=== PATIENT | male | born 1960 | race Caucasian/White ===

== ENCOUNTER 2022-09-22 22:09 | Observation (INO) | payer BC ==
[2022-09-22] MEDS ORDERED: NITROGLYCERIN 0.4 MG/TAB SL ONE (22:42)
[2022-09-22 22:46] LABS: Absolute Lymphocytes (CBC) 1.8 K/uL (0.7-4.9); Lymphocytes % 29.4 % (15.3-44.8); MCV 91.8 fL (80-100); MPV 7.8 fL (7.6-11.3); RBC Red Blood Cell Count 4.25 M/uL (4.33-5.43)
[2022-09-22 23:05] LABS: Potassium 3.8 mmol/L (3.5-5.1); Troponin High Sensitivity 5.8 pg/mL (<58.9)
[2022-09-22 23:08] LABS: Albumin 3.9 g/dL (3.4-5.0); Bilirubin Direct 0.1 mg/dL (0-0.2); Bilirubin Total 0.4 mg/dL (0.2-1.0); Protein, Total 6.5 g/dL (6.4-8.2)
--- NOTE | 2022-09-22 23:21 | EDPHYS ---
Physician Documentation [facility] Name: Bear Zuniga Age: 62 yrs Sex: Male : 1960 Arrival Date: 09/22/2022 Time: 22:10 Bed 6 Private MD: ED Physician Can Sosa HPI: 09/22 23:28 This 62 yrs old Male presents to ER via EMS with complaints of Chest Pain. rt 23:28 Patient presents to the ED with exertional chest pain today, and completely resolved rt with nitro. Patient has had reported 5 stents previously. He has an associated shortness of breath. Pain is pressure in nature, nonradiating, no other symptoms or other aggravating or alleviating factors. Symptoms are moderate severity.. Historical: - Allergies: 22:19 No Known Allergies; kd3 - PMHx: 22:19 Myocardial infarction; stents; kd3 - Immunization history:: Adult Immunizations up to date. - Social history:: Smoking status: Patient denies any tobacco usage or history of. - Family history:: not pertinent. ROS: 23:28 Constitutional: Negative for fever, chills, and weight loss, Abdomen/GI: Negative for rt abdominal pain, nausea, vomiting, diarrhea, and constipation, MS/Extremity: Negative for injury and deformity, Skin: Negative for injury, rash, and discoloration, Neuro: Negative for headache, weakness, numbness, tingling, and seizure. 23:28 Cardiovascular: Positive for chest pain, Negative for edema. 23:28 Respiratory: Positive for shortness of breath, Negative for cough. Exam: 23:28 Constitutional: This is a well developed, well nourished patient who is awake, alert, rt and in no acute distress. Head/Face: Normocephalic, atraumatic. Neck: Trachea midline, no thyromegaly or masses palpated, and no cervical lymphadenopathy. Supple, full range of motion without nuchal rigidity, or vertebral point tenderness. No Meningismus. Chest/axilla: Normal chest wall appearance and motion. Nontender with no deformity. No lesions are appreciated. Cardiovascular: Regular rate and rhythm with a normal S1 and S2. No gallops, murmurs, or rubs. Normal PMI, no JVD. No pulse deficits. Respiratory: Lungs have equal breath sounds bilaterally, clear to auscultation and percussion. No rales, rhonchi or wheezes noted. No increased work of breathing, no retractions or nasal flaring. Abdomen/GI: Soft, non-tender, with normal bowel sounds. No distension or tympany. No guarding or rebound. No evidence of tenderness throughout. MS/ Extremity: Pulses equal, no cyanosis. Neurovascular intact. Full, normal range of motion. Neuro: Awake and alert, GCS 15, oriented to person, place, time, and situation. Cranial nerves II-XII grossly intact. Motor strength 5/5 in all extremities. Sensory grossly intact. Cerebellar exam normal. Normal gait. Psych: Awake, alert, with orientation to person, place and time. Behavior, mood, and affect are within normal limits. 23:28 ECG was reviewed by the Attending Physician. Vital Signs: 22:12 BP 138 / 84; Pulse 72; Resp 19; Temp 98.5(O); Pulse Ox 100% on R/A; Weight 81.65 kg; kd3 Height 5 ft. 7 in. (170.18 cm); 22:56 BP 125 / 76; Pulse 84; Resp 19 S; Pulse Ox 99% on R/A; as6 09/23 00:36 BP 119 / 70; Pulse 78; Resp 15 S; Pulse Ox 98% on R/A; as6 09/22 22:12 Body Mass Index 28.19 (81.65 kg, 170.18 cm) kd3 MDM: 09/22 22:11 Patient medically screened. rt 23:31 Differential diagnosis: abnormal EKG, acute myocardial infarction, pneumonia, rt pneumothorax, pulmonary embolus, unstable angina. HEART Score: History: Highly Suspicious (2), ECG: Non specific repolarization disturbance / LBTB / PM (1), Age: > 45 and < 65 years (1), Risk Factors: > or = 3 Risk factors for atherosclerotic disease (2), Troponin: < or = 1 x Normal Limit (0), Total Score = 6. The patient was not given aspirin in the Emergency Department. Patient reports taking aspirin within the past 24 hours. Data reviewed: vital signs, nurses notes, lab test result(s), EKG, radiologic studies. I considered the following discharge prescriptions or medication management in the emergency department Medications were administered in the Emergency Department. See MAR. Test considered but Not performed: CT: Low suspicion for PE, CT scan not indicated.. Care significantly affected by the following chronic conditions: Coronary artery disease. Counseling: I had a detailed discussion with the patient and/or guardian regarding: the historical points, exam findings, and any diagnostic results supporting the discharge/admit diagnosis, lab results, radiology results, the need for further work-up and treatment in the hospital. 09/22 22:26 Order name: Basic Metabolic Panel [facility] 09/22 22:26 Order name: CBC with Diff [facility] 09/22 22:26 Order name: Troponin HS [facility] 09/22 22:26 Order name: XRAY Chest (1 view) 3 09/22 22:26 Order name: EKG; Complete Time: 22:27 3 09/22 22:26 Order name: Cardiac monitoring; Complete Time: 22:26 3 09/22 22:26 Order name: EKG - Nurse/Tech; Complete Time: 22:26 3 09/22 22:26 Order name: IV Saline Lock; Complete Time: 22:26 3 09/22 22:26 Order name: Labs collected and sent; Complete Time: 22:26 3 09/22 22:26 Order name: O2 Per Protocol; Complete Time: 22:26 kd3 09/22 22:26 Order name: O2 Sat Monitoring; Complete Time: 22:26 3 09/22 22:30 Order name: LFT's la1 09/22 22:30 Order name: BNP tn1 09/22 22:48 Order name: CBC with Automated Diff; Complete Time: 23:10 EDMS 09/22 23:05 Order name: Basic Metabolic Panel; Complete Time: 23:10 EDMS 09/22 23:05 Order name: Troponin High Sensitivity; Complete Time: 23:10 EDMS 09/22 23:08 Order name: Liver (Hepatic) Function; Complete Time: 23:10 EDMS 09/22 23:08 Order name: NT PRO-BNP; Complete Time: 23:10 EDMS 09/22 23:19 Order name: SARS RAPID la1 09/23 00:19 Order name: SARS-COV-2 Antigen Rapid EDMS EC:28 Rate is 69 beats/min. Rhythm is regular, Normal Sinus Rhythm with No ectopy. QRS [place] rt is Normal. SC interval is normal. QRS interval is normal. QT interval is normal. No Q waves. Clinical impression: NSR w/ Non-specific ST/T Changes. Administered Medications: 22:38 Drug: Nitroglycerin 0.4 mg Route: Sublingual; kd3 22:57 Drug: Nitroglycerin 0.4 mg Route: Sublingual; kd3 09/23 00:49 Follow up: Response: No adverse reaction; Pain is decreased kd3 Disposition Summary: 09/22/22 23:20 Hospitalization Ordered Hospitalization Status: Observation rt Provider: Davey Soliman rt Location: Telemetry/MedSurg (observation) rt Condition: Stable rt Problem: new rt Symptoms: are resolved rt Bed/Room Type: Standard rt Room Assignment: 401(09/23/22 00:34) cg Diagnosis - Chest pain, unspecified rt Forms: - Medication Reconciliation Form rt - SBAR form rt Signatures: Dispatcher [employer] EDJuan José Perry, RESEARCH ELECTRICIAN-C RESEARCH ELECTRICIAN-Cla1 Diana Mata RN RN cg Laura Edwards RN RN kd3 Can Sosa MD MD rt Corrections: (The following items were deleted from the chart) 00:34 09/22 23:20 rt cg
--- NOTE | 2022-09-22 23:21 | ER ---
Nurse's Notes [facility] [place] Name: Bear Zuniga Age: 62 yrs Sex: Male : 1960 Arrival Date: 09/22/2022 Time: 22:10 Bed 6 Private MD: Diagnosis: Chest pain, unspecified Presentation: 09/22 22:12 Chief complaint: EMS states: Pt had some chest tightness that started about an hour kd3 ago. Pt took his bp at home and it was 140/90 with a heart rate of 100. Pt has a significant heart history that includes stent placement in 2014. pt took nitro about 30 minutes ago. Coronavirus screen: Vaccine status: Patient reports receiving the 2nd dose of the covid vaccine. Ebola Screen: No symptoms or risks identified at this time. Initial Sepsis Screen: Does the patient meet any 2 criteria? No. Patient's initial sepsis screen is negative. Initial Sepsis Screen: Does the patient have a suspected source of infection? No. Patient's initial sepsis screen is negative. Risk Assessment: Do you want to hurt yourself or someone else? Patient reports no desire to harm self or others. Onset of symptoms was September 22, 2022. 22:12 Method Of Arrival: EMS: [facility] kd3 22:12 Acuity: BENJI 3 kd3 Triage Assessment: 22:19 General: Appears in no apparent distress. Behavior is calm, cooperative. Pain: kd3 Complains of pain in chest. Neuro: Level of Consciousness is awake, alert, obeys commands, Oriented to person, place, time, situation. Cardiovascular: Patient's skin is warm and dry. Respiratory: Airway is patent Trachea deviated to right Respiratory effort is even, unlabored, Respiratory pattern is regular, symmetrical. Historical: - Allergies: 22:19 No Known Allergies; kd3 - PMHx: 22:19 Myocardial infarction; stents; kd3 - Immunization history:: Adult Immunizations up to date. - Social history:: Smoking status: Patient denies any tobacco usage or history of. - Family history:: not pertinent. Screenin/03 00:37 [facility] ED Fall Risk Assessment (Adult) Score/Fall Risk Level 0 - 2 = Low Risk. Abuse as6 screen: Denies threats or abuse. Denies injuries from another. Nutritional screening: No deficits noted. Tuberculosis screening: No symptoms or risk factors identified. Assessment: 00:22 General: Leisa [phone]. kd3 00:38 General: attempted to call report . as6 Vital Signs: 09/22 22:12 BP 138 / 84; Pulse 72; Resp 19; Temp 98.5(O); Pulse Ox 100% on R/A; Weight 81.65 kg; kd3 Height 5 ft. 7 in. (170.18 cm); 22:56 BP 125 / 76; Pulse 84; Resp 19 S; Pulse Ox 99% on R/A; as6 09/23 00:36 BP 119 / 70; Pulse 78; Resp 15 S; Pulse Ox 98% on R/A; as6 09/22 22:12 Body Mass Index 28.19 (81.65 kg, 170.18 cm) kd3 ED Course: 09/22 22:10 Patient arrived in ED. la1 22:11 Can Sosa MD is Attending Physician. rt 22:12 Laura Edwards RN is Primary Nurse. kd3 22:19 Triage completed. kd3 22:19 Arm band placed on right wrist. EKG completed in triage. Results shown to MD. kd3 23:20 Davey Soliman MD is Hospitalizing Provider. rt 09/23 00:37 Bed in low position. Call light in reach. Side rails up X2. as6 00:37 No provider procedures requiring assistance completed. Patient admitted, IV remains in as6 place. Administered Medications: 09/22 22:38 Drug: Nitroglycerin 0.4 mg Route: Sublingual; kd3 22:57 Drug: Nitroglycerin 0.4 mg Route: Sublingual; kd3 09/23 00:49 Follow up: Response: No adverse reaction; Pain is decreased kd3 Medication: 00:37 VIS not applicable for this client. as6 Outcome: 09/22 23:20 Decision to Hospitalize by Provider. rt 03 00:37 Condition: stable as6 Instructed on the need for admit. 00:49 Admitted to Med/surg kd3 00:51 Patient left the ED. kd3 Signatures: Juan José Hancock, SCIENCE INSTRUCTOR-C SCIENCE INSTRUCTOR-Cla1 Girma Neumann RN RN as6 Laura Edwards RN RN kd3 Can Sosa MD MD rt
--- NOTE | 2022-09-23 00:14 | P.HP ---
Certification for Inpatient Patient admitted to: Observation With expected LOS: <2 Midnights Patient will require the following post-hospital care: None Practitioner: I am a practitioner with admitting privileges, knowledge of patient current condition, hospital course, and medical plan of care. Services: Services provided to patient in accordance with Admission requirements found in Title 42 Section 412.3 of the Code of Federal Regulations <Juan José Hancock Edilson Figueroa - Last Filed: 09/23/22 00:11> Patient History Date of Service: 09/23/22 Reason for admission: Chest pain History of Present Illness: 62-year-old male with history of hypertension, CAD, anxiety, GERD presents to the emergency department with chief complaint of chest pain. He reports that he was working on installing a stereo system in his home when he began to have chest tightness similar to his previous MN in 2014 but less severe. He was brought to the hospital by EMS his EKG was negative for STEMI criteria, initial troponin 5.8. His pain was relieved with 2 nitroglycerin which were given in the emergency department. His last heart catheterization was in 2014, last stress test approximately 2 to 3 years ago. ED provider wishes to admit under observation for ACS rule out. - Past Medical/Surgical History -: CAD -: Hypertension -: Anxiety -: GERD -: Hernia repair Psychosocial/ Personal History: Patient lives at home with his , is retired. - Family History Father -: Heart disease Brother -: Heart disease - Social History Smoking Status: Never smoker Alcohol use: No CD- Drugs: No Caffeine use: Yes Place of Residence: Home <KarissaJuan José - Last Filed: 09/23/22 00:11> Date of Service: 09/23/22 <Davey Soliman - Last Filed: 09/23/22 12:27> Allergies No Known Allergies Allergy (Unverified 02/09/12 09:17) Review of Systems 10-point ROS is otherwise unremarkable Cardiovascular: Chest Pain <DavidJuan José arnold - Last Filed: 09/23/22 00:11> Physical Examination - Physical Exam General: Alert, In no apparent distress, Oriented x3 HEENT: Atraumatic, PERRLA, Mucous membr. moist/pink, EOMI, Sclerae nonicteric Neck: Supple, 2+ carotid pulse no bruit, No LAD, Without JVD or thyroid abnormality Respiratory: Clear to auscultation bilaterally, Normal air movement Cardiovascular: Regular rate/rhythm, Normal S1 S2 Gastrointestinal: Normal bowel sounds, No tenderness Musculoskeletal: No tenderness Integumentary: No rashes Neurological: Normal speech, Normal strength at 5/5 x4 extr, Normal tone, Normal affect - Studies Laboratory Data (last 24 hrs) 09/22/22 22:33: Total Bilirubin 0.4, AST 17, ALT 30, Alkaline Phosphatase 57 09/22/22 22:33: WBC 6.10, Hgb 13.2 L, Hct 39.0 L, Plt Count 249 09/22/22 22:33: Sodium 137, Potassium 3.8, BUN 14, Creatinine 0.93, Glucose 161 H <Juan José Hancock - Last Filed: 09/23/22 00:11> - Studies Laboratory Data (last 24 hrs) 09/22/22 22:33: Total Bilirubin 0.4, AST 17, ALT 30, Alkaline Phosphatase 57 09/22/22 22:33: WBC 6.10, Hgb 13.2 L, Hct 39.0 L, Plt Count 249 09/22/22 22:33: Sodium 137, Potassium 3.8, BUN 14, Creatinine 0.93, Glucose 161 H <Davey Soliman - Last Filed: 09/23/22 12:27> Assessment and Plan - Plan Assessment: Chest pain rule out ACShistory CAD Hypertension GERD Anxiety Plan: Chest pain rule out ACShistory CAD Trend troponins, monitor on telemetry, cardiology consulted. N.p.o. in case of plan for intervention by cardiology. Continue aspirin, beta-nickolas added statin. Lipid panel ordered. Pain-free at this time, as needed nitroglycerin/morphine. Hypertension Continue lisinopril, metoprolol GERD Continue PPI Anxiety Continue as needed alprazolam. DVT PPX: Lovenox Code status: Full Discharge Plan: Home Plan to discharge in: 24 Hours - Advance Directives Does patient have a Living Will: No Does patient have a Durable POA for Healthcare: No - Code Status/Comfort Care Code Status Assessed: Yes (Full code) Critical Care: No Time Spent Managing Pts Care (In Minutes): 50 <Juan José Hancock - Last Filed: 09/23/22 00:11> Physician Review: Patient Assessed, Agree with Above Assessment and Plan <Davey Soliman - Last Filed: 09/23/22 12:27>
[2022-09-23 00:19] LABS: SARS-CoV-2 Antigen Rapid Res Negative (Negative)
[2022-09-23] MEDS ORDERED: ALPRAZOLAM 0.5 MG TABLET PO PRN (01:03)
[2022-09-23] MEDS ORDERED: NITROGLYCERIN 0.4 MG/TAB SL PRN (01:03)
[2022-09-23] MEDS ORDERED: ONDANSETRON 4 MG/2 ML VIAL IV PRN (01:03)
[2022-09-23] MEDS ORDERED: MORPHINE 2 MG/ML SYR IV PRN (01:03)
[2022-09-23 01:29] VITALS: O2SAT 98; BMI 28.1
[2022-09-23] MEDS ORDERED: ACETAMINOPHEN 325 MG TABLET PO PRN (01:58)
[2022-09-23 04:03] LABS: Lymphocytes % 31.1 % (15.3-44.8); MCV 91.3 fL (80-100); MPV 8.2 fL (7.6-11.3); RBC Red Blood Cell Count 4.16 M/uL (4.33-5.43)
[2022-09-23 04:33] LABS: Troponin High Sensitivity 6.9 pg/mL (<58.9)
[2022-09-23] MEDS ORDERED: lisinopriL 5 MG TAB PO SCH (09:00)
[2022-09-23] MEDS ORDERED: ASPIRIN EC 81 MG TAB PO SCH (09:00)
[2022-09-23] MEDS ORDERED: ENOXAPARIN 40 MG/0.4 ML SQ SCH (09:00)
--- NOTE | 2022-09-23 12:33 | P.DS ---
Admission Date: 09/23/22 Discharge Date: 09/23/22 Disposition: ROUTINE DISCHARGE Discharge Condition: GOOD Reason for Admission: Chest pain Consultations: 1. Cardiology Hospital Course: DIAGNOSES: # Post-Prandial Chest Pain, suspect Gastrointestinal # Coronary Artery Disease s/p PCI # Hypertension # Anxiety # Gastroesophageal Reflux Disease HOSPITAL COURSE: Mr. Bear Zuniga is a pleasant 62 year old male with a past medical history significant for coronary artery disease s/p PCI, hypertension, anxiety, and gastroesophageal reflux disease who was admitted to the [facility] on 09/23/2022 for chest pain. He was admitted to the Medicine service. Upon further evaluation, his EKG was without STEMI criteria. His D-dimer returned at 330. His troponin trend was 5.8 -> 6.9 -> 6.9. His chest x-ray revealed, "no acute cardiopulmonary abnormality identified by radiograph. Cardiology was consulted and he was evaluated by Dr. Ramirez. He has cleared him for discharge with outpatient transthoracic echocardiogram and cardiac stress test. On 09/23/2022, he was seen on rounds and deemed medically stable for discharge. He was discharged with instructions to schedule follow-up appointments with his PCP and with Cardiology (Dr. Ramirez). He was given the opportunity to ask questions and reported no further questions. Furthermore, all questions were answered to the best of my ability. A copy of this discharge summary will be sent to the above providers to facilitate continuity of care. Today, I personally spent 25 minutes on his case, of which greater than 50% of the time was spent in patient education, counseling, and coordination of care as described above. Vital Signs/Physical Exam: Temp Pulse Resp BP Pulse Ox 97 F 69 16 128/71 98 09/23/22 08:00 09/23/22 10:57 09/23/22 08:00 09/23/22 10:57 09/23/22 08:00 General: Alert, In no apparent distress, Oriented x3 HEENT: Atraumatic, EOMI, Sclerae nonicteric Neck: JVD not distended Respiratory: Clear to auscultation bilaterally, Normal air movement Cardiovascular: No edema, Regular rate/rhythm, Normal S1 S2, No gallops, No rubs, No murmurs Gastrointestinal: Normal bowel sounds, Soft and benign, Non-distended, No tenderness, No rebound, No guarding Musculoskeletal: No clubbing Integumentary: No rashes Neurological: Normal speech, Normal affect Laboratory Data at Discharge: WBC 6.50 K/uL (4.3-10.9) 09/23/22 03:11 Hgb 13.0 g/dL (13.6-17.9) L 09/23/22 03:11 Hct 38.0 % (39.6-49.0) L 09/23/22 03:11 Plt Count 249 K/uL (152-406) 09/23/22 03:11 Sodium 138 mmol/L (136-145) 09/23/22 03:11 Potassium 4.0 mmol/L (3.5-5.1) 09/23/22 03:11 BUN 15 mg/dL (7-18) 09/23/22 03:11 Creatinine 0.66 mg/dL (0.70-1.30) L 09/23/22 03:11 Glucose 105 mg/dL (74-106) 09/23/22 03:11 Total Bilirubin 0.4 mg/dL (0.2-1.0) 09/22/22 22:33 AST 17 U/L (15-37) 09/22/22 22:33 ALT 30 U/L (16-61) 09/22/22 22:33 Alkaline Phosphatase 57 U/L (45-117) 09/22/22 22:33 Triglycerides 52 mg/dL (<150) 09/23/22 03:11 Cholesterol 129 mg/dL (<200) 09/23/22 03:11 HDL Cholesterol 53 mg/dL (40-60) 09/23/22 03:11 Cholesterol/HDL Ratio 2.43 09/23/22 03:11 Home Medications: RX: Alprazolam [Xanax] 0.5 mg PO BID PRN 09/23/22 RX: Aspirin [Adult Aspirin Regimen] 81 mg PO DAILY 09/23/22 RX: Atorvastatin Calcium [Lipitor] 40 mg PO BEDTIME 09/23/22 RX: Lisinopril [Zestril] 5 mg PO DAILY 09/23/22 RX: Metoprolol Succinate [Toprol Xl*] 25 mg PO DAILY 09/23/22 RX: Omeprazole [Prilosec] 40 mg PO BID 09/23/22 Physician Discharge Instructions: 1. Please call and schedule a follow-up appointment with your PCP in 3-5 days 2. Please call and schedule a follow-up appointment with Cardiology (Dr. Ramirez) in 3-5 days - He will schedule you for a cardiac stress test in his clinic Diet: AHA Activity: Ad jose Followup: NONE,NONE [Primary Care Provider] - Kane Ramirez MD [ACTIVE - CAN ADMIT] - Time spent managing pt's care (in minutes): 25
[2022-09-23 13:31] VITALS: BP 152/71; TEMP 97.6
--- NOTE | 2022-09-23 14:29 | EKG ---
Test Date: 2022-09-22 Test Time: 22:21:25 Network Security Engineer: LAYLA MEASUREMENT RESULTS: Intervals: Rate: 69 NC: 158 QRSD: 100 QT: 374 QTc: 400 [place]: P: 54 NC: 158 QRS: 6 T: -2 INTERPRETIVE STATEMENTS: Normal sinus rhythm Inferior infarct, age undetermined Abnormal ECG No previous ECG available for comparison Electronically Signed On 09-23-22 14:28:11 INSPECTOR EXHAUST EMISSIONS by Kane Ramirez
--- NOTE | 2022-09-23 18:14 | CON ---
Date of Consultation: 09/23/2022 Reason For Consultation: Chest pain. History Of Present Illness: This is a 62-year-old male with history of hypertension, coronary artery disease, anxiety disorder, and acid reflux who presented to the emergency room with chest pain. He was working installing a sound system at his house and started having chest tightness. No radiation. Pain resolved shortly after that and denies having any shortness of breath, diaphoresis, nausea, or vomiting. No further chest pain since hospitalization. Past Medical History: As outlined above in the HPI. Medications: Refer to reconciliation sheet for detailed list. Allergies: NO KNOWN DRUG ALLERGIES. Family History: No premature coronary artery disease or cancer. Social History: He does not smoke or drink. Does not use any drugs. Review of Systems: All systems reviewed and they were negative except as mentioned in HPI. Physical Examination: Vital Signs: Reviewed. Head And Neck: Pupils are equal and reactive to light. Intact eye movements. No JVD. No cervical lymphadenopathy. Neck is supple. Thyroid is not enlarged. Lungs: Clear to auscultation bilaterally. No rhonchi, wheezing, or crackles. No accessory muscle u se. Heart: Regular rate and rhythm. No extra sounds. Abdomen: Soft, nontender. Bowel sounds positive. No organomegaly. No masses or hernia. No rigidi ty or rebound. Extremities: No edema, clubbing, or cyanosis. Intact pulses. Skin: No rash. Neurologic: Alert, awake, and oriented x3. No acute focal deficits appreciated. Investigations: BUN 15, creatinine 0.66, and troponin x3 are negative. LDL cholesterol 66, and hemo globin 13.0. Assessment/recommendation: 1.Chest pain. It was one episode and resolved and the patient did not have any further episodes and cardiac enzymes are totally normal. EKG without acute specific abnormalities. The patient can be r eleased from Cardiology standpoint as he is chest pain free. Follow up at the office early next week . We will obtain exercise nuclear stress test and an echo to further evaluate given the fact that he has history of coronary artery disease. 2.Dyslipidemia. Continue statin, at goal. 3.Hypertension. Blood pressure is controlled. SR/MODL Voice ID: [id number] Report ID: [id number]
--- NOTE | 2022-09-23 20:44 | RAD REPORT ---
EXAM DESCRIPTION: RAD - Chest Single View - 09/22/2022 10:51 pm CLINICAL HISTORY: CHEST PAIN. COMPARISON: None. TECHNIQUE: Single view AP chest radiograph(s). FINDINGS: No pulmonary infiltrate identified. No pleural effusion. No pneumothorax. Nonenlarged card iomediastinal silhouette. No significant osseous abnormality. IMPRESSION: No acute cardiopulmonary abnormality identified by radiograph. Electronically signed by: Brittany Santamaria MD 09/22/2022 10:58 PM BLANCHARD GRINDER OPERATOR Due to temporary technical issues with the PACS/Fluency reporting system, reports are being signed by the in house radiologists without review as a courtesy to insure prompt reporting. The interpreting radiologist is fully responsible for the content of the report
[2022-09-23] MEDS ORDERED: ATORVASTATIN 40 MG TAB PO SCH (21:00)
[2022-09-23] MEDS ORDERED: METOPROLOL XL 25 MG TAB PO SCH (21:00)
--- NOTE | 2022-09-26 07:13 | ECHO ---
HEIGHT: 5 ft 7 in WEIGHT: 180 lb 0 oz DATE OF STUDY: 09/23/[address]: Davey Soliman MD 2-DIMENSIONAL: YES M.MODE: YES DOPPLER: YES COLOR FLOW: YES TDS: PORTABLE: YES DEFINITY: BUBBLE STUDY: DIAGNOSIS: CHEST PAIN CARDIAC HISTORY: CATHERIZATION: SURGERY: PROSTHETIC VALVE: PACEMAKER: MEASUREMENTS (cm) DIASTOLIC (NORMALS) SYSTOLIC (NORMALS) IVSd 1.0 (0.6-1.2) LA Diam 3.7 (1.9-4.0) LVEF 69% LVIDd 4.6 (3.5-5.7) LVIDs 2.8 (2.0-3.5) %FS 39% LVPWd 1.0 (0.6-1.2) Ao Diam 3.1 (2.0-3.7) 2 DIMENSIONAL ASSESSMENT: RIGHT ATRIUM: NORMAL LEFT ATRIUM: NORMAL RIGHT VENTRICLE: NORMAL LEFT VENTRICLE: NORMAL TRICUSPID VALVE: NORMAL MITRAL VALVE: NORMAL PULMONIC VALVE: MILD PULMONARY INSUFFICIENCY AORTIC VALVE: NORMAL PERICARDIAL EFFUSION: NONE AORTIC ROOT: NORMAL LEFT VENTRICULAR WALL MOTION: NORMAL DOPPLER/COLOR FLOW: MILD PULMONIC INSUFFICIENCY COMMENTS: 1. NORMAL LEFT VENTRICULAR EJECTION FRACTION 60-65% 2. NORMAL WALL MOTION 3. NORMAL DIASTOLIC FUNCTION 4. MILD PULMONIC INSUFFICIENCY TECHNOLOGIST: ROSY MACK
== END 2022-09-23 14:25 | disposition home or self-care (01) ==
LOC: ER 22:09 → ERHOLD 09-23 → 4TH 09-23 00:38
PROVIDERS: ADMIT Internal Medicine; ATTEND Internal Medicine
DX: R07.89 Other chest pain (principal); I10 Essential (primary) hypertension; I25.10 Atherosclerotic heart disease of native coronary artery without angina pectoris; F41.9 Anxiety disorder, unspecified; K21.9 Gastro-esophageal reflux disease without esophagitis; Z82.49 Family history of ischemic heart disease and other diseases of the circulatory system; E78.5 Hyperlipidemia, unspecified; Z20.822 Contact with and (suspected) exposure to COVID-19
CPT/HCPCS: 93005; 93306; 85025 ×2; 80048 ×2; 36415; 80061; 85379; 80076; 84484 ×3; 83880; 71045; 99285; 87811; J1650; G0378

== ENCOUNTER 2024-05-31 07:09 | Emergency (ER) | payer BC ==
--- NOTE | 2024-05-31 07:49 | RAD REPORT ---
EXAMINATION: ONE VIEW CHEST XR CLINICAL INDICATION: CHEST PAIN TECHNIQUE: Frontal chest projection is submitted. Examination is limited by patient positioning and t echnique. COMPARISON: 09/22/2022 FINDINGS: The lungs are well inflated and clear. The heart is upper limit of normal in size. No displaced fract ures identified. Right upper lung field device. IMPRESSION: No acute intrathoracic abnormalities.
[2024-05-31 07:52] LABS: Absolute Basophils 0.1 K/uL (0-0.5); Absolute Eosinophils 0.1 K/uL (0-0.5); Absolute Lymphocytes (CBC) 2.2 K/uL (0.7-4.9); Absolute Monocytes 0.7 K/uL (0.1-1.3); Absolute Neutrophil 5.3 K/uL (1.8-8.0); Basophils % 0.8 % (0-1.3); Eosinophils % 0.6 % (0-4.4); Hematocrit 38.6 % (39.6-49.0); Hemoglobin 13.2 g/dL (13.6-17.9); Lymphocytes % 26.3 % (15.3-44.8); MCH 31.1 pg (27.0-35.0); MCHC 34.2 g/dL (32.0-36.0); MCV 90.9 fL (80-100); MPV 7.8 fL (7.6-11.3); Monocytes % 8.6 % (3.3-12.3); Neutrophils % 63.7 % (41.7-73.7); Nucleated Red Blood Cells % 0.1 % (0-0); Platelets 230 thou/uL (152-406); RBC Red Blood Cell Count 4.24 M/uL (4.33-5.43); Red Cell Distribution Width 13.7 % (12.1-15.2)
[2024-05-31 08:12] LABS: Albumin 3.4 g/dL (3.4-5.0); Albumin/Globulin Ratio 1.2 (1.1-1.8); Anion Gap 7.8 mEq/L (5.0-15.0); Bilirubin Direct 0.2 mg/dL (0-0.2); Bilirubin Indirect, Calculated 0.4 mg/dL (0.2-0.8); Bilirubin Total 0.6 mg/dL (0.2-1.0); Globulin 2.8 g/dL (2.3-3.5); Potassium 3.8 mEq/L (3.5-5.1); Protein, Total 6.2 g/dL (6.4-8.2); Troponin High Sensitivity 10.8 pg/mL (<58.9)
[2024-05-31 08:15] LABS: PT Prothrombin Time 11.8 SECONDS (9.4-12.5); Protime INR 1.06
--- NOTE | 2024-05-31 11:48 | ER ---
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 Pt states "my heart rate was high about 156, 167 and my blood pressure was high 180 (systolic)". Pt reports he took 1 dose of Nitro spray and ASA 325mg x 2 tabs just MD PHYSICIAN DERMATOLOGIST. 07:10 Coronavirus screen: shortness of breath. Ebola Screen: Patient denies travel to an [facility] area in the 21 days before illness onset. Initial Sepsis Screen: Does the patient meet any 2 criteria? No. Patient's initial sepsis screen is negative. Does the patient have a suspected source of infection? No. Patient's initial sepsis screen is negative. Risk Assessment: Do you want to hurt yourself or someone else? Patient reports no desire to harm self or others. Onset of symptoms was May 31, 2024. 07:10 Acuity: BENJI 2 aa5 07:10 Method Of Arrival: Ambulatory aa5 Historical: - Allergies: 07:10 No Known Allergies; aa5 - PMHx: 07:10 Myocardial infarction; Hypercholesterolemia; Hypertensive disorder; Heart stents; Sleep aa5 apnea; - PSHx: 07:10 Heart Stents; SX for sleep apnea; aa5 - Immunization history:: Adult Immunizations unknown. - Infectious Disease History:: Denies. - Social history:: Smoking status: Patient denies any tobacco usage or history of. Screenin:54 [facility] ED Fall Risk Assessment (Adult) History of falling in the last 3 months, db including since admission No falls in past 3 months (0 pts) Confusion or Disorientation No (0 pts) Intoxicated or Sedated No (0 pts) Impaired Gait No (0 pts) Mobility Assist Device Used No (0 pt) Altered Elimination No (0 pt) Score/Fall Risk Level 0 - 2 = Low Risk Oriented to surroundings, Maintained a safe environment. Abuse screen: Denies threats or abuse. Denies injuries from another. Nutritional screening: No deficits noted. Tuberculosis screening: No symptoms or risk factors identified. Assessment: 07:55 Reassessment: Patient appears in no apparent distress at this time. Patient and/or db family updated on plan of care and expected duration. Pain level reassessed. Patient is alert, oriented x 3, equal unlabored respirations, skin warm/dry/pink. General: Appears in no apparent distress. comfortable, Behavior is calm, cooperative. Pain: Pain radiates to chest and neck Pain began. Cardiovascular: Reports chest pain. 07:55 Neuro: Level of Consciousness is awake, alert, obeys commands, Oriented to person, db place, time, situation. Cardiovascular: Reports. Respiratory: Airway is patent Respiratory effort is even, unlabored, Respiratory pattern is regular, symmetrical. 10:00 Reassessment: Patient appears in no apparent distress at this time. Patient and/or db family updated on plan of care and expected duration. Pain level reassessed. Patient is alert, oriented x 3, equal unlabored respirations, skin warm/dry/pink. 12:02 Reassessment: Patient appears in no apparent distress at this time. Patient and/or db family updated on plan of care and expected duration. Pain level reassessed. Patient is alert, oriented x 3, equal unlabored respirations, skin warm/dry/pink. Patient states feeling better. Patient states symptoms have improved. Vital Signs: 07:10 BP 159 / 87; Pulse 84; Resp 19 S; Temp 97.5(TE); Pulse Ox 98% on R/A; Weight 82.55 kg aa5 (R); Height 5 ft. 7 in. (R); 07:45 BP 137 / 80; Pulse 80; Resp 18; Pulse Ox 98% on 2 lpm NC; db 08:30 BP 126 / 84; Pulse 72; Resp 16; Pulse Ox 99% on NC; db 09:00 BP 115 / 79; Pulse 76; Resp 16; Pulse Ox 100% on 2 lpm NC; db 10:00 BP 142 / 78; Pulse 75; Resp 16; Pulse Ox 98% on NC; db 11:00 BP 147 / 79; Pulse 78; Resp 18; Pulse Ox 97% on R/A; db 07:10 Body Mass Index 28.50 (82.55 kg, 170.18 cm) aa5 07:45 PT REQUEST NC O2 FOR COMFORT. NOTED ROOM AIR IS AT 98%. db ED Course: 07:10 Patient arrived in ED. ra3 07:10 Arm band placed on. aa5 07:10 Patient has correct armband on for positive identification. Placed in gown. Bed in low aa5 position. Call light in reach. Side rails up X2. Adult w/ patient. Client placed on continuous cardiac and pulse oximetry monitoring. NIBP monitoring applied. vehicle monitor technician on. Pulse ox on. NIBP on. 07:12 Ney Osuna DO is Attending Physician. ms3 07:19 EKG done, by ED staff, reviewed by Ney Osuna DO. aa5 07:27 Triage completed. aa5 07:39 Inserted saline lock: 20 gauge in left antecubital area, using aseptic technique. aa5 07:43 Stephanie Munoz, RN is Primary Nurse. db 11:10 Repeat lab(s) drawn. by md, sent to lab. db 11:48 Kane Ramirez MD is Referral Physician. ms3 12:02 Provided Education on: DISCHARGE. db 12:02 No provider procedures requiring assistance completed. IV discontinued, intact, db bleeding controlled, No redness/swelling at site. Patient maintains SpO2 saturation greater than 95% on room air. Administered Medications: No medications were administered Medication: 08:54 VIS not applicable for this client. db Outcome: 11:48 Discharge ordered by . ms3 12:02 Discharged to home ambulatory, with family, db 12:02 Condition: stable 12:02 Discharge instructions given to patient, family, Instructed on discharge instructions, follow up and referral plans. 12:03 Patient left the ED. db Signatures: Chhaya Montgomery, RN RN aa5 Ney Osuna DO DO ms3 Stephanie Munoz, RN RN db Gogo Miller ra3 Corrections: (The following items were deleted from the chart) 11:14 08:30 BP 126 / 84; Pulse 72bpm; Resp 16bpm; Pulse Ox 99% RA; db db
--- NOTE | 2024-05-31 11:48 | EDPHYS ---
Physician Documentation [facility] Name: Bear Zuniga Age: 64 yrs Sex: Male : 1960 Arrival Date: 05/31/2024 Time: 07:09 Bed 15 Private MD: ED Physician Ney Osuna HPI: 05/31 07:25 This 64 yrs old Male presents to ER via Unassigned with complaints of Chest Pain. ms3 07:25 64 year old male presents to the Emergency Department for an elevated heart rate and ms3 elevated blood pressure approximately 35 minutes prior to the encounter. The patient describes chest pain as located in the left chest and rated it as a 7 out of 10 in severity. The patient also experienced shortness of breath but did not report any nausea, vomiting, or sweating. The patient mentioned having a history of heart issues and a previous heart attack in 2014. The patient had been under stress recently and took two aspirin and nitroglycerin as precautionary measures. . Historical: - Allergies: 07:10 No Known Allergies; aa5 - PMHx: 07:10 Myocardial infarction; Hypercholesterolemia; Hypertensive disorder; Heart stents; Sleep aa5 apnea; - PSHx: 07:10 Heart Stents; SX for sleep apnea; aa5 - Immunization history:: Adult Immunizations unknown. - Infectious Disease History:: Denies. - Social history:: Smoking status: Patient denies any tobacco usage or history of. ROS: 07:25 Constitutional: Negative for fever, and chills. ms3 07:25 Respiratory: Negative for shortness of breath, cough, wheezing, and pleuritic chest pain, Abdomen/GI: Negative for abdominal pain, nausea, vomiting, diarrhea, and constipation, MS/Extremity: Negative for injury and deformity, Skin: Negative for injury, rash, and discoloration, 07:25 Cardiovascular: Positive for chest pain, Exam: 07:25 Constitutional: This is a well developed, well nourished patient who is awake, alert, ms3 and in no acute distress. Cardiovascular: Regular rate and rhythm with a normal S1 and S2. No gallops, murmurs, or rubs. Normal PMI, no JVD. No pulse deficits. Respiratory: Lungs have equal breath sounds bilaterally, clear to auscultation and percussion. No rales, rhonchi or wheezes noted. No increased work of breathing, no retractions or nasal flaring. Abdomen/GI: Soft, non-tender, with normal bowel sounds. No distension or tympany. No guarding or rebound. No evidence of tenderness throughout. Skin: Warm, dry with normal turgor. Normal color with no rashes, no lesions, and no evidence of cellulitis. MS/ Extremity: Pulses equal, no cyanosis. Neurovascular intact. Full, normal range of motion. 07:25 Chest/axilla: Inspection: Incision with dermabond on right chest. No erythema, no drainage, 08:10 ECG was reviewed by the Attending Physician. ms3 Vital Signs: 07:10 BP 159 / 87; Pulse 84; Resp 19 S; Temp 97.5(TE); Pulse Ox 98% on R/A; Weight 82.55 kg aa5 (R); Height 5 ft. 7 in. (R); 07:45 BP 137 / 80; Pulse 80; Resp 18; Pulse Ox 98% on 2 lpm NC; db 08:30 BP 126 / 84; Pulse 72; Resp 16; Pulse Ox 99% on NC; db 09:00 BP 115 / 79; Pulse 76; Resp 16; Pulse Ox 100% on 2 lpm NC; db 10:00 BP 142 / 78; Pulse 75; Resp 16; Pulse Ox 98% on NC; db 11:00 BP 147 / 79; Pulse 78; Resp 18; Pulse Ox 97% on R/A; db 07:10 Body Mass Index 28.50 (82.55 kg, 170.18 cm) aa5 07:45 PT REQUEST NC O2 FOR COMFORT. NOTED ROOM AIR IS AT 98%. db MDM: 07:23 Medical Screening Exam initiated ms3 09:36 HEART Score: History: Slightly Suspicious (0), ECG: Normal (0), Age: > 45 and < 65 ms3 years (1), Risk Factors: > or = 3 Risk factors for atherosclerotic disease (2), Troponin: < or = 1 x Normal Limit (0), Total Score = 3. The patient was not given aspirin in the Emergency Department. Patient reports taking aspirin within the past 24 hours. Data reviewed: vital signs, nurses notes, lab test result(s), EKG, radiologic studies, and as a result, I will admit patient. Independent interpretation of the following test(s) in the Emergency Department EKG: See my EKG interpretation above. 10:21 ED course: Discussed observation with patient and his . Patient declines ms3 observation as he believes the chest pain could have been caused by stress. Discussed allowing us obtain second troponin with patient and he is agreeable. Second troponin ordered.. 05/31 07:58 Order name: CBC with Automated Diff; Complete Time: 09:34 EDMS 05/31 08:12 Order name: Basic Metabolic Panel; Complete Time: 09:34 EDMS 05/31 08:12 Order name: Liver (Hepatic) Function; Complete Time: 09:34 EDMS 05/31 08:12 Order name: Troponin High Sensitivity; Complete Time: 09:34 EDMS 05/31 08:12 Order name: NT PRO-BNP; Complete Time: 09:34 EDMS 05/31 08:12 Order name: Magnesium; Complete Time: 09:34 EDMS 05/31 08:15 Order name: Protime (+INR); Complete Time: 09:34 EDMS 05/31 09:06 Order name: Basic Metabolic Panel EDMS 05/31 09:06 Order name: Liver (Hepatic) Function EDMS 05/31 09:06 Order name: Troponin High Sensitivity EDMS 05/31 09:06 Order name: NT PRO-BNP EDMS 05/31 09:06 Order name: Magnesium EDMS 05/31 09:06 Order name: CBC with Automated Diff EDMS 05/31 09:06 Order name: Protime (+INR) EDMS 05/31 10:21 Order name: Troponin High Sensitivity; Complete Time: 11:46 ms3 05/31 07:49 Order name: RAD; Complete Time: 09:34 EDMS 05/31 09:00 Order name: Chest Single View EDMS 05/31 07:24 Order name: EKG; Complete Time: 08:58 ms3 05/31 07:24 Order name: Cardiac monitoring; Complete Time: 07:42 ms3 05/31 07:24 Order name: EKG - Nurse/Tech; Complete Time: 07:42 ms3 05/31 07:24 Order name: IV Saline Lock; Complete Time: 07:42 ms3 05/31 07:24 Order name: Labs collected and sent; Complete Time: 07:42 ms3 05/31 07:24 Order name: O2 Per Protocol; Complete Time: 07:42 ms3 05/31 07:24 Order name: O2 Sat Monitoring; Complete Time: 07:42 ms3 EC:10 Rate is 82 beats/min. Rhythm is regular. QRS Snyder is Normal. MO interval is normal. QRS ms3 interval is normal. QT interval is normal. Clinical impression: NSR w/ Non-specific ST/T Changes. Interpreted by me. Reviewed by me. Administered Medications: No medications were administered Disposition Summary: 05/31/24 11:48 Discharge Ordered Notes: Location: Home ms3 Condition: Stable ms3 Diagnosis - Chest pain, unspecified ms3 - Essential (primary) hypertension ms3 Followup: ms3 - With: Kane Ramirez MD - When: 2 - 3 days - Reason: Recheck today's complaints Discharge Instructions: - Discharge Summary Sheet ms3 - Nonspecific Chest Pain, Adult ms3 Forms: - Medication Reconciliation Form ms3 - Antibiotic Education ms3 - Prescription Opioid Use ms3 - Patient Portal Instructions ms3 - Leadership Thank You Letter ms3 Signatures: Dispatcher [employer] Chhaya Mendiola RN RN aa5 Ney Osuna DO DO ms3 Corrections: (The following items were deleted from the chart) 09:00 08:58 Chest Single View+RAD.RAD.BRZ ordered. EDMS EDMS 09:13 08:58 BASIC METABOLIC PANEL+C.LAB.BRZ ordered. EDMS EDMS 09:13 08:58 CBC+H.LAB.BRZ ordered. EDMS EDMS 09:13 08:58 HEPATIC FUNCTION+C.LAB.BRZ ordered. EDMS EDMS 09:13 08:58 MAGNESIUM+C.LAB.BRZ ordered. EDMS EDMS 09:13 08:58 PROBNP+C.LAB.BRZ ordered. EDMS EDMS 09:13 08:58 PROTIME (+INR)+COAG.LAB.BRZ ordered. EDMS EDMS 09:13 08:58 Troponin High Sensitivity+C.LAB.BRZ ordered. EDMS EDMS 10:30 10:30 Troponin High Sensitivity+C.LAB.BRZ ordered. EDMS EDMS
[2024-05-31 13:20] VITALS: TEMP 97.5
[2024-05-31 13:26] VITALS: BP 147/79; O2SAT 97
--- NOTE | 2024-06-02 12:45 | EKG ---
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
== END 2024-05-31 12:03 | disposition home or self-care (01) ==
LOC: ER 07:09
DX: R07.9 Chest pain, unspecified (principal); I10 Essential (primary) hypertension; I25.2 Old myocardial infarction; Z95.818 Presence of other cardiac implants and grafts
CPT/HCPCS: 36415; 71045; 80048; 80076; 83735; 83880; 84484; 85025; 85610; 93005; 99284